=== PATIENT | male | born 1960 | race Caucasian/White ===

== ENCOUNTER 2017-04-04 09:37 | Outpatient (CLI) | payer OTHER ==
[2017-04-04 12:32] LABS: #Basophils 0.1 thou/uL (0.0-0.2); #Eosinphils 0.2 thou/uL (0.0-0.7); #Monocytes 0.7 thou/uL (0.11-0.59); #Neutrophils 4.4 thou/uL (1.40-6.50); %Basophils 0.9 % (0.0-1.0); %Eosinophils 3.1 % (0.0-10.0); %Lymphocytes 27.3 % (21.0-51.0); %Monocytes 9.1 % (0.0-10.0); %Neutrophils 59.6 % (42.0-75.0); Hemoglobin 14.6 g/dL (14.0-18.0); Mean Corpuscular HGB CONC 32.7 g/dL (32.0-36.0); Mean Corpuscular Hemoglobin 31.3 pg (27.0-31.0); Mean Corpuscular Volume 95.5 fl (80.0-94.0); Mean Platelet Volume 6.1 fL (7.4-10.4); Platelet Count 239 thou/uL (130-400); RBC Distribution Width 12.6 % (11.5-14.5); Red Blood Cell (RBC) Count 4.66 mill/uL (4.70-6.10); White Blood Cell (WBC) Count 7.4 thou/uL (4.8-10.8)
[2017-04-04 12:40] LABS: Bilirubin Negative (Negative); Blood, Urine Negative (Negative); Clarity Clear (Clear); Glucose, Urine (Dipstick) Negative (Negative); Leukocyte Negative (Negative); Nitrite Negative (Negative); Protein, Urine (Dipstick) Negative (Neg-Trace); Urobilinogen 0.2 mg/dL (0.2-1.0)
[2017-04-04 13:15] LABS: ALT (SGPT) 31 U/L (8-55); AST (SGOT) 21 U/L (5-34); Albumin 3.9 g/dL (3.5-5.0); Alkaline Phosphatase 118 U/L (40-150); Anion Gap 15 mmol/L (10-20); BUN (Urea Nitrogen) 14 mg/dL (8.4-25.7); Bilirubin, Total 0.3 mg/dL (0.2-1.2); Calc. Creatinine Clearance 0 mL/min (70-130); Calcium 9.1 mg/dL (7.8-10.44); Carbon Dioxide 25 mmol/L (22-29); Cardiac Risk 3.8 (Less than 4.5); Chloride 102 mmol/L (98-107); Cholesterol 181 mg/dl (< 200 Desired); Estimated GFR-MDRD Greater than 90; Glucose 136 mg/dL (70-105); HDL Cholesterol 48 mg/dL (>60 Neg Risk); LDL Cholesterol, Calculated 112 mg/dL; Potassium 4.6 mmol/L (3.5-5.1); Protein, Total 6.9 g/dL (6.0-8.3); Sodium 137 mmol/L (136-145); Triglycerides 107 mg/dL (Less than 150)
[2017-04-04 13:21] LABS: Hemoglobin A1c 6.8 % (4.0-6.0)
[2017-04-04 17:54] LABS: Creatinine, Urine 94.5 mg/dL (63-166); Microalbumin Urine 1.3 mg/dL (0.5-50.0); Microalbumin/Creat Ratio 13.8 mg/g (Less than 30)
== END 2017-04-04 09:38 | disposition home or self-care (01) ==
LOC: NAVSJIPCSP 09:37
PROVIDERS: ATTEND Internal Medicine
DX: Z12.5 Encounter for screening for malignant neoplasm of prostate (principal); E11.628 Type 2 diabetes mellitus with other skin complications; E78.5 Hyperlipidemia, unspecified; K21.9 Gastro-esophageal reflux disease without esophagitis; I11.9 Hypertensive heart disease without heart failure
CPT/HCPCS: 36415; 80053; 80061; 81003; 82043; 83036; 85025; G0103

== ENCOUNTER 2018-02-27 09:11 | Emergency (ER) | payer OTHER | END 2018-02-27 10:28 | disposition home or self-care (01) | LOC: NAV ERS 09:11 | DX: K56.41 Fecal impaction (principal); E78.5 Hyperlipidemia, unspecified; I10 Essential (primary) hypertension; E66.9 Obesity, unspecified; F41.9 Anxiety disorder, unspecified; F32.9 Major depressive disorder, single episode, unspecified; F17.210 Nicotine dependence, cigarettes, uncomplicated; Z79.84 Long term (current) use of oral hypoglycemic drugs; Z79.899 Other long term (current) drug therapy | CPT/HCPCS: 99283 ==

== ENCOUNTER 2018-12-02 00:32 | Emergency (ER) | payer OTHER ==
[2018-12-02] MEDS ORDERED: Bacitracin Zinc 1 Packet ONE (00:48)
== END 2018-12-02 00:55 | disposition home or self-care (01) ==
LOC: NAV ERS 00:32
DX: L02.521 Furuncle right hand (principal); E78.5 Hyperlipidemia, unspecified; I10 Essential (primary) hypertension; E66.9 Obesity, unspecified; Z86.711 Personal history of pulmonary embolism; F41.9 Anxiety disorder, unspecified; F32.9 Major depressive disorder, single episode, unspecified; F17.210 Nicotine dependence, cigarettes, uncomplicated; Z79.899 Other long term (current) drug therapy
CPT/HCPCS: 10060; 87070; 87077; 87186; 87205

== ENCOUNTER 2019-07-01 14:54 | Emergency (ER) | payer OTHER ==
[2019-07-01] MEDS ORDERED: Lidocaine 1% w/Epinephrine 1:100K 30 ML VIAL ONE (15:08)
[2019-07-01] MEDS ORDERED: Sodium Bicarbonate 2.5 MEQ/5 ML VIAL ONE (15:08)
[2019-07-01] MEDS ORDERED: Sulfameth/Trimethoprim DS 800-160mg TAB ONE (15:28)
[2019-07-01] MEDS ORDERED: Amoxicillin/Potassium Clav 875 MG TAB ONE (15:28)
[2019-07-01] MEDS ORDERED: Ondansetron ODT 4 MG TAB ONE (15:28)
== END 2019-07-01 15:54 | disposition home or self-care (01) ==
LOC: NAV ERS 14:54
DX: L02.211 Cutaneous abscess of abdominal wall (principal); E78.5 Hyperlipidemia, unspecified; E78.00 Pure hypercholesterolemia, unspecified; I10 Essential (primary) hypertension; E66.9 Obesity, unspecified; F41.9 Anxiety disorder, unspecified; F32.9 Major depressive disorder, single episode, unspecified; F17.210 Nicotine dependence, cigarettes, uncomplicated; Z86.718 Personal history of other venous thrombosis and embolism; Z86.711 Personal history of pulmonary embolism; Z79.899 Other long term (current) drug therapy; Z79.01 Long term (current) use of anticoagulants
CPT/HCPCS: 10060; 36416; J2001; Q0162

== ENCOUNTER 2020-10-13 07:58 | Emergency (ER) | payer OTHER ==
[2020-10-13] MEDS ORDERED: Diazepam 5 MG TAB ONE (09:05)
[2020-10-13 09:16] LABS: #Basophils 0.1 thou/uL (0.0-0.2); #Eosinphils 0.1 thou/uL (0.0-0.7); #Lymphocytes 1.3 thou/uL (1.20-3.40); #Monocytes 0.5 thou/uL (0.11-0.59); #Neutrophils 3.3 thou/uL (1.40-6.50); %Basophils 1.8 % (0.0-1.0); %Eosinophils 2.1 % (0.0-10.0); %Lymphocytes 24.5 % (21.0-51.0); %Monocytes 9.2 % (0.0-10.0); %Neutrophils 62.4 % (42.0-75.0); Hemoglobin 16.8 g/dL (14.0-18.0); Mean Corpuscular HGB CONC 34.6 g/dL (32.0-36.0); Mean Corpuscular Hemoglobin 33.1 pg (27.0-31.0); Mean Corpuscular Volume 95.5 fL (78.0-98.0); Mean Platelet Volume 7.5 fL (7.4-10.4); Platelet Count 186 thou/uL (130-400); RBC Distribution Width 11.3 % (11.5-14.5); Red Blood Cell (RBC) Count 5.08 mill/uL (4.70-6.10); White Blood Cell (WBC) Count 5.3 thou/uL (4.8-10.8)
[2020-10-13 09:31] LABS: ALT (SGPT) 57 U/L (8-55); AST (SGOT) 49 U/L (5-34); Albumin 3.8 g/dL (3.5-5.0); Alcohol Less than 10 mg/dL (Less than 10); Alkaline Phosphatase 78 U/L (40-110); Anion Gap 17 mmol/L (10-20); BUN (Urea Nitrogen) 13 mg/dL (8.4-25.7); Bilirubin, Total 0.8 mg/dL (0.2-1.2); Calc. Creatinine Clearance 0 mL/min (70-130); Carbon Dioxide 29 mmol/L (22-29); Chloride 93 mmol/L (98-107); Globulin 3.1 g/dL (2.4-3.5); Glucose 296 mg/dL (70-105); Potassium 3.6 mmol/L (3.5-5.1); Protein, Total 6.9 g/dL (6.0-8.3); Sodium 135 mmol/L (136-145)
== END 2020-10-13 10:40 | disposition home or self-care (01) ==
LOC: NAV ERS 07:58
DX: F41.9 Anxiety disorder, unspecified (principal); F10.10 Alcohol abuse, uncomplicated; I10 Essential (primary) hypertension; E78.5 Hyperlipidemia, unspecified; F17.210 Nicotine dependence, cigarettes, uncomplicated; Z79.899 Other long term (current) drug therapy
CPT/HCPCS: 80053; 80307; 84443; 85025; 99283

== ENCOUNTER 2021-01-02 10:05 | Outpatient (CLI) | payer OTHER | END 2021-01-02 10:06 | disposition home or self-care (01) | LOC: NAV RAD 10:05 | PROVIDERS: ATTEND Nurse Practitioner Adult Health | DX: L03.032 Cellulitis of left toe (principal); S91.132 Puncture wound without foreign body of left great toe without damage to nail ==

== ENCOUNTER 2022-03-29 05:50 | Emergency (ER) | payer OTHER ==
[2022-03-29 06:12] LABS: #Basophils 0.1 thou/uL (0.0-0.2); #Eosinphils 0.1 thou/uL (0.0-0.7); #Lymphocytes 1.9 thou/uL (1.20-3.40); #Monocytes 0.6 thou/uL (0.11-0.59); #Neutrophils 8.3 thou/uL (1.40-6.50); %Basophils 1.3 % (0.0-1.0); %Eosinophils 0.8 % (0.0-10.0); %Lymphocytes 17.4 % (21.0-51.0); %Monocytes 5.7 % (0.0-10.0); %Neutrophils 74.8 % (42.0-75.0); Hemoglobin 14.1 g/dL (14.0-18.0); Mean Corpuscular Hemoglobin 31.3 pg (27.0-31.0); Mean Corpuscular Volume 94.9 fL (78.0-98.0); Mean Platelet Volume 7.1 fL (7.4-10.4); Platelet Count 248 thou/uL (130-400); RBC Distribution Width 11.5 % (11.5-14.5); White Blood Cell (WBC) Count 11.1 thou/uL (4.8-10.8)
[2022-03-29] MEDS ORDERED: Diazepam 10 MG/2 ML SYRINGE ONE ×3 (06:20→15:21)
[2022-03-29] MEDS ORDERED: Thiamine HCl 200 MG/2 ML VIAL ONE (06:21)
[2022-03-29 06:42] LABS: ALT (SGPT) 39 U/L (8-55); AST (SGOT) 60 U/L (5-34); Acetaminophen Less than 10.0 mcg/mL (10.0-30.0); Albumin 3.9 g/dL (3.4-4.8); Alcohol Less than 10 mg/dL (Less than 10); Alkaline Phosphatase 60 U/L (40-110); Anion Gap 23 mmol/L (10-20); BUN (Urea Nitrogen) 18 mg/dL (8.4-25.7); Calc. Creatinine Clearance 0 mL/min (70-130); Carbon Dioxide 20 mmol/L (23-31); Chloride 97 mmol/L (98-107); Estimated GFR 64; Globulin 2.9 g/dL (2.4-3.5); Glucose 173 mg/dL (80-115); Potassium 3.6 mmol/L (3.5-5.1); Protein, Total 6.8 g/dL (5.8-8.1); Salicylate Less than 8.0 mg/dL (15.0-30.0); Sodium 136 mmol/L (136-145)
[2022-03-29] MEDS ORDERED: Sodium Chloride 0.9% 1,000 ML ONE (06:53)
[2022-03-29 06:59] LABS: Lipase 28 U/L (8-78)
[2022-03-29] MEDS ORDERED: Ondansetron PF 4 MG/2 ML Vial ONE (07:18)
[2022-03-29 07:28] LABS: Magnesium 0.8 mg/dL (1.6-2.6)
[2022-03-29] MEDS ORDERED: Multivit, Adult Inj 10 ML VIAL ONE (07:33)
[2022-03-29] MEDS ORDERED: Dextrose 5 %-0.45 % NaCl 1,000 ML ONE (07:33)
[2022-03-29] MEDS ORDERED: Magnesium 2 GM/50 ML BAG (IN WATER) ONE ×2 (08:16→09:28)
[2022-03-29 08:48] LABS: SARS-CoV-2 NAA Rapid Test Not Detected (NotDetected)
[2022-03-29 08:48] LABS: Bilirubin Negative (Negative); Blood, Urine Negative (Negative); Clarity Clear (Clear); Glucose, Urine (Dipstick) Negative (Negative); Ketone, Urine 40 mg/dL (Negative); Leukocyte Negative (Negative); Nitrite Negative (Negative); Protein, Urine (Dipstick) Negative (Neg-Trace); Specific Gravity, Urine 1.025 (1.005-1.030); Urobilinogen 0.2 mg/dL (Less than 2); pH, Urine 5.5 (5.0-9.0)
[2022-03-29 08:58] LABS: Amphetamine Detected (NotDetected); Barbiturates Screen Not Detected (NotDetected); Benzodiazepine Screen Not Detected (NotDetected); Cocaine Metabolite Screen Not Detected (NotDetected); Medtox Control Line Valid? VALID (VALID); Methadone Not Detected (NotDetected); Methamphetamine Detected (NotDetected); Opiate Screen Not Detected (NotDetected); Oxycodone Screen Not Detected (NotDetected); Phencyclidine (PCP) Not Detected (NotDetected); THC/Cannabinoid Screen Not Detected (NotDetected); Tricyclic Screen Not Detected (NotDetected)
[2022-03-29 14:04] LABS: Anion Gap 16 mmol/L (10-20); BUN (Urea Nitrogen) 14 mg/dL (8.4-25.7); Calc. Creatinine Clearance 0 mL/min (70-130); Calcium 7.4 mg/dL (7.8-10.44); Carbon Dioxide 20 mmol/L (23-31); Chloride 100 mmol/L (98-107); Estimated GFR 81; Glucose 183 mg/dL (80-115); Magnesium 1.6 mg/dL (1.6-2.6); Potassium 3.3 mmol/L (3.5-5.1); Sodium 133 mmol/L (136-145)
== END 2022-03-29 17:42 | disposition short-term general hospital (02) ==
LOC: NAV ERS 05:50
DX: F10.139 Alcohol abuse with withdrawal, unspecified (principal); F15.10 Other stimulant abuse, uncomplicated; E83.42 Hypomagnesemia; E11.9 Type 2 diabetes mellitus without complications; E78.00 Pure hypercholesterolemia, unspecified; F17.210 Nicotine dependence, cigarettes, uncomplicated; Z20.822 Contact with and (suspected) exposure to COVID-19; Z86.711 Personal history of pulmonary embolism; Z86.718 Personal history of other venous thrombosis and embolism; Z79.899 Other long term (current) drug therapy; Z79.4 Long term (current) use of insulin
CPT/HCPCS: 36416; 71045; 80053; 80306; 80307; 81003; 83690; 83735; 85025; 93005; 96361; 96365; 96366; 96368; 96375; 96376; J2405; J3360; J3411; J3475; J7042; J7050; U0002

== ENCOUNTER 2022-05-06 15:47 | Emergency (ER) | payer OTHER ==
[2022-05-06] MEDS ORDERED: Metoprolol Tartrate 5 MG/5 ML VIAL ONE (16:32)
[2022-05-06] MEDS ORDERED: Ondansetron PF 4 MG/2 ML Vial ONE (16:32)
[2022-05-06] MEDS ORDERED: Sodium Chloride 0.9% 1,000 ML ONE (16:32)
[2022-05-06 16:33] LABS: #Basophils 0.1 thou/uL (0.0-0.2); #Eosinphils 0.1 thou/uL (0.0-0.7); #Monocytes 0.7 thou/uL (0.11-0.59); #Neutrophils 4.8 thou/uL (1.40-6.50); %Basophils 1.6 % (0.0-1.0); %Eosinophils 0.7 % (0.0-10.0); %Lymphocytes 26.4 % (21.0-51.0); %Neutrophils 62.3 % (42.0-75.0); Hemoglobin 16.3 g/dL (14.0-18.0); Mean Corpuscular HGB CONC 32.6 g/dL (32.0-36.0); Mean Corpuscular Hemoglobin 31.7 pg (27.0-31.0); Mean Platelet Volume 6.6 fL (7.4-10.4); Platelet Count 298 thou/uL (130-400); RBC Distribution Width 12.4 % (11.5-14.5); Red Blood Cell (RBC) Count 5.16 mill/uL (4.70-6.10); White Blood Cell (WBC) Count 7.7 thou/uL (4.8-10.8)
[2022-05-06 16:42] LABS: ALT (SGPT) 45 U/L (8-55); AST (SGOT) 44 U/L (5-34); Albumin 4.7 g/dL (3.4-4.8); Alkaline Phosphatase 68 U/L (40-110); Anion Gap 29 mmol/L (10-20); BUN (Urea Nitrogen) 20 mg/dL (8.4-25.7); Bilirubin, Total 0.4 mg/dL (0.2-1.2); CK (CPK) 533 U/L (30-200); Calc. Creatinine Clearance 0 mL/min (70-130); Calcium 8.5 mg/dL (7.8-10.44); Carbon Dioxide 17 mmol/L (23-31); Chloride 95 mmol/L (98-107); Estimated GFR 63; Globulin 3.4 g/dL (2.4-3.5); Glucose 176 mg/dL (80-115); Potassium 4.4 mmol/L (3.5-5.1); Protein, Total 8.1 g/dL (5.8-8.1); Sodium 137 mmol/L (136-145)
[2022-05-06 16:55] LABS: Acetaminophen Less than 10.0 mcg/mL (10.0-30.0); Alcohol 225 mg/dL (Less than 10); Salicylate Less than 8.0 mg/dL (15.0-30.0)
[2022-05-06] MEDS ORDERED: Sodium Chloride 0.9% 2,000 ML ONE (17:21)
[2022-05-06] MEDS ORDERED: Midazolam HCl 2 mg/2 ml Vial ONE (17:23)
[2022-05-06] MEDS ORDERED: cefTRIAXone\\ROCEPHIN 2 GM VIAL ONE (17:52)
[2022-05-06] MEDS ORDERED: Sodium Chloride 0.9% 100 ML ONE (17:52)
== END 2022-05-06 18:45 | disposition short-term general hospital (02) ==
LOC: NAV ERS 15:47
DX: M62.82 Rhabdomyolysis (principal); F10.229 Alcohol dependence with intoxication, unspecified; E87.20 Acidosis, unspecified; F32.9 Major depressive disorder, single episode, unspecified; E78.00 Pure hypercholesterolemia, unspecified; I10 Essential (primary) hypertension; F17.210 Nicotine dependence, cigarettes, uncomplicated; Z79.899 Other long term (current) drug therapy
CPT/HCPCS: 80053; 80307; 82140; 82550; 83605; 84443; 84484; 85025; 87040; 93005; 96361; 96374; 96375; J0696; J2250; J2405; J7050

== ENCOUNTER 2023-07-23 02:48 | Emergency (ER) | payer OTHER ==
[2023-07-23 03:16] LABS: #Basophils 0.1 thou/uL (0.0-0.2); #Eosinphils 0.1 thou/uL (0.0-0.7); #Lymphocytes 1.8 thou/uL (1.20-3.40); #Monocytes 0.5 thou/uL (0.11-0.59); #Neutrophils 3.8 thou/uL (1.40-6.50); %Basophils 1.5 % (0.0-1.0); %Eosinophils 1.3 % (0.0-10.0); %Lymphocytes 29.1 % (21.0-51.0); %Monocytes 7.7 % (0.0-10.0); %Neutrophils 60.5 % (42.0-75.0); Hemoglobin 16.8 g/dL (14.0-18.0); Mean Corpuscular HGB CONC 35.7 g/dL (32.0-36.0); Mean Corpuscular Hemoglobin 33.8 pg (27.0-31.0); Mean Corpuscular Volume 94.7 fl (78.0-98.0); Mean Platelet Volume 6.6 fL (7.4-10.4); Platelet Count 264 10x3/uL (130-400); Red Blood Cell (RBC) Count 4.97 mill/uL (4.70-6.10); White Blood Cell (WBC) Count 6.3 10x3/uL (4.8-10.8)
[2023-07-23] MEDS ORDERED: Diazepam 10 MG/2 ML SYRINGE ONE (03:17)
[2023-07-23] MEDS ORDERED: Sodium Chloride 0.9% 1,000 ML ONE (03:17)
[2023-07-23] MEDS ORDERED: Thiamine HCl 200 MG/2 ML VIAL ONE (03:20)
[2023-07-23 03:28] LABS: Magnesium 1.7 mg/dL (1.6-2.6)
[2023-07-23 03:31] LABS: Acetaminophen Less than 10 mcg/mL (10.0-30.0); Salicylate Less than 8.0 mg/dL (15.0-30.0)
[2023-07-23 03:32] LABS: ALT (SGPT) 142 U/L (8-55); AST (SGOT) 360 U/L (5-34); Albumin 3.8 g/dL (3.4-4.8); Alkaline Phosphatase 81 U/L (40-110); Anion Gap 18 mmol/L (10-20); BUN (Urea Nitrogen) 16 mg/dL (8.4-25.7); Calc. Creatinine Clearance 0 mL/min (70-130); Calcium 8.4 mg/dL (7.8-10.44); Carbon Dioxide 22 mmol/L (23-31); Chloride 97 mmol/L (98-107); Estimated GFR 82; Globulin 3.3 g/dL (2.4-3.5); Glucose 158 mg/dL (80-115); Potassium 3.9 mmol/L (3.5-5.1); Protein, Total 7.1 g/dL (5.8-8.1); Sodium 133 mmol/L (136-145)
[2023-07-23] MEDS ORDERED: Amlodipine 5 MG TAB ONE (03:47)
[2023-07-23] MEDS ORDERED: Multivit, Adult Inj 10 ML VIAL ONE (03:48)
[2023-07-23] MEDS ORDERED: Dextrose 5 %-0.45 % NaCl 1,000 ML ONE (03:48)
[2023-07-23] MEDS ORDERED: Metoprolol Tartrate 25 MG TAB ONE (03:48)
[2023-07-23] MEDS ORDERED: Folic Acid 5 MG/ML MDV ONE (03:48)
[2023-07-23] MEDS ORDERED: Ondansetron PF 4 MG/2 ML Vial ONE (04:04)
[2023-07-23 04:08] LABS: Amphetamine Detected (NotDetected); Barbiturates Screen Not Detected (NotDetected); Benzodiazepine Screen Not Detected (NotDetected); Cocaine Metabolite Screen Not Detected (NotDetected); Methadone Not Detected (NotDetected); Methamphetamine Detected (NotDetected); Opiate Screen Not Detected (NotDetected); Oxycodone Screen Not Detected (NotDetected); Phencyclidine (PCP) Not Detected (NotDetected); THC/Cannabinoid Screen Not Detected (NotDetected); Tricyclic Screen Not Detected (NotDetected)
[2023-07-23] MEDS ORDERED: Lisinopril 20 MG TAB ONE (04:09)
[2023-07-23] MEDS ORDERED: Labetalol HCl 100 MG/20 ML VIAL ONE (04:34)
[2023-07-23] MEDS ORDERED: chlordiazePOXIDE HCl 25 MG CAP PO SCH ×2 (05:00→10:15)
[2023-07-23] MEDS ORDERED: chlordiazePOXIDE HCl 25 MG CAP PO PRN (05:27)
[2023-07-23] MEDS ORDERED: Ketorolac Tromethamine 30 MG (1 mL) VIAL ONE (07:31)
[2023-07-23] MEDS ORDERED: busPIRone HCl 15 MG TAB ONE (09:47)
[2023-07-23] MEDS ORDERED: chlordiazePOXIDE HCl 25 MG CAP ONE (10:41)
== END 2023-07-23 10:55 | disposition home or self-care (01) ==
LOC: NAV ERS 02:48
DX: F10.239 Alcohol dependence with withdrawal, unspecified (principal); K70.10 Alcoholic hepatitis without ascites; E78.00 Pure hypercholesterolemia, unspecified; I10 Essential (primary) hypertension; E11.9 Type 2 diabetes mellitus without complications; Z79.4 Long term (current) use of insulin; Z79.899 Other long term (current) drug therapy
CPT/HCPCS: 80053; 80306; 80307; 83735; 85025; 93005; 96365; 96366; 96375; J1885; J2405; J3360; J3411; J7042; J7050

== ENCOUNTER 2025-06-13 23:38 | Emergency (ER) | payer OTHER ==
[2025-06-14 00:32] LABS: #Basophils 0.1 thou/uL (0.0-0.2); #Eosinophils 0.1 thou/uL (0.0-0.7); #Lymphocytes 1.8 thou/uL (1.20-3.40); #Monocytes 0.5 thou/uL (0.11-0.59); #Neutrophils 3.7 thou/uL (1.40-6.50); %Basophils 1.8 % (0.0-1.0); %Eosinophils 1.2 % (0.0-10.0); %Lymphocytes 29.5 % (21.0-51.0); %Monocytes 7.7 % (0.0-10.0); %Neutrophils 59.8 % (42.0-75.0); Hematocrit 45.8 % (42.0-52.0); Hemoglobin 16.2 g/dL (14.0-18.0); Mean Corpuscular Hemoglobin 32.8 pg (27.0-31.0); Mean Corpuscular Volume 92.5 fl (78.0-98.0); Platelet Count 255 10x3/uL (130-400); Red Blood Cell (RBC) Count 4.95 mill/uL (4.70-6.10); White Blood Cell (WBC) Count 6.2 10x3/uL (4.8-10.8)
[2025-06-14] MEDS ORDERED: Ondansetron PF 4 MG/2 ML Vial ONE (00:41)
[2025-06-14 00:43] LABS: INR-International Normal Ratio 1.1; Prothrombin Time 14.2 sec (12.0-14.7)
[2025-06-14 00:44] LABS: PTT 25.0 sec (22.9-36.1)
[2025-06-14 00:59] LABS: ALT (SGPT) 95 U/L (Less than 45); AST (SGOT) 164 U/L (11-34); Albumin 3.6 g/dL (3.1-4.5); Alkaline Phosphatase 114 U/L (40-110); Anion Gap 21 mmol/L (10-20); BUN (Urea Nitrogen) 15 mg/dL (8.4-25.7); Bilirubin, Total 0.5 mg/dL (0.3-1.2); Calc. Creatinine Clearance 0 mL/min (70-130); Calcium 8.4 mg/dL (7.8-10.44); Carbon Dioxide 19 mmol/L (23-31); Chloride 98 mmol/L (98-107); Globulin 3.7 g/dL (2.4-3.5); Glucose 259 mg/dL (80-115); Potassium 3.7 mmol/L (3.5-5.1); Sodium 134 mmol/L (136-145)
[2025-06-14 01:00] LABS: Acetaminophen Less than 10 mcg/mL (Less than 10); Salicylate Less than 8.0 mg/dL (Less than 8.0)
== END 2025-06-14 02:05 | disposition home or self-care (01) ==
LOC: NAV ERS 23:38
DX: H81.392 Other peripheral vertigo, left ear (principal); F10.129 Alcohol abuse with intoxication, unspecified; Y90.6 Blood alcohol level of 120-199 mg/100 ml; R60.0 Localized edema; E11.9 Type 2 diabetes mellitus without complications; I10 Essential (primary) hypertension; E78.5 Hyperlipidemia, unspecified; F17.200 Nicotine dependence, unspecified, uncomplicated; Z79.899 Other long term (current) drug therapy; Z79.4 Long term (current) use of insulin
CPT/HCPCS: 70450; 71045; 80053; 80307; 85025; 85610; 85730; 93005; 96374; J2405; J7030

== ENCOUNTER 2025-07-15 23:21 | Emergency (ER) | payer OTHER ==
[~2025-07-15 23:21] MED LIST: Iopamidol 370 76% 100 ML VIAL ONE
[2025-07-15] MEDS ORDERED: Ondansetron PF 4 MG/2 ML Vial ONE (23:41)
[2025-07-15 23:44] LABS: Hematocrit 42.3 % (42.0-52.0); Hemoglobin 15.4 g/dL (14.0-18.0); Mean Corpuscular Volume 90.0 fl (78.0-98.0); Platelet Count 216 10x3/uL (130-400); Red Blood Cell (RBC) Count 4.70 mill/uL (4.70-6.10); White Blood Cell (WBC) Count 5.3 10x3/uL (4.8-10.8)
[2025-07-15 23:45] LABS: Mean Corpuscular Hemoglobin 32.7 pg (27.0-31.0)
[2025-07-15 23:49] LABS: INR-International Normal Ratio 1.0; Prothrombin Time 13.6 sec (12.0-14.7)
[2025-07-15 23:53] LABS: Glucose, Urine (Dipstick) 500 mg/dL (Negative); Leukocyte Negative (Negative); Protein, Urine (Dipstick) Trace mg/dL (Neg-Trace); Specific Gravity, Urine 1.015 (1.005-1.030)
[2025-07-15 23:57] LABS: Bacteria/HPF None Seen HPF (None Seen); CAUTI Indications for Culture Pelvic or flank pain; RBC/HPF None Seen HPF (0-3); WBC/HPF None Seen HPF (0-3)
[2025-07-15 23:58] LABS: Urine Culture Reflex No No
[2025-07-15 23:59] LABS: Troponin I Less than 0.010 ng/mL (< 0.028)
[2025-07-16 00:05] LABS: ALT (SGPT) 71 U/L (Less than 45); AST (SGOT) 64 U/L (11-34); Albumin 3.9 g/dL (3.1-4.5); Alkaline Phosphatase 81 U/L (40-110); Anion Gap 21 mmol/L (10-20); BUN (Urea Nitrogen) 11 mg/dL (8.4-25.7); Bilirubin, Total 0.3 mg/dL (0.3-1.2); Calc. Creatinine Clearance 0 mL/min (70-130); Calcium 8.9 mg/dL (7.8-10.44); Carbon Dioxide 21 mmol/L (23-31); Chloride 97 mmol/L (98-107); Globulin 3.5 g/dL (2.4-3.5); Glucose 293 mg/dL (80-115); Lipase 44 U/L (8-78); Potassium 3.6 mmol/L (3.5-5.1); Sodium 135 mmol/L (136-145)
[2025-07-16 01:57] LABS: Troponin I Less than 0.010 ng/mL (< 0.028)
== END 2025-07-16 02:19 | disposition short-term general hospital (02) ==
LOC: NAV ERS 23:21
DX: K81.0 Acute cholecystitis (principal); E11.9 Type 2 diabetes mellitus without complications; E78.5 Hyperlipidemia, unspecified; I10 Essential (primary) hypertension; Z79.4 Long term (current) use of insulin; F17.200 Nicotine dependence, unspecified, uncomplicated; Z79.899 Other long term (current) drug therapy; Z79.01 Long term (current) use of anticoagulants
CPT/HCPCS: 74177; 80053; 81001; 83690; 83880; 84484; 85025; 85610; 96361; 96365; 96375; 96376; J2270; J2405; J2543; J7030; Q9967